=== PATIENT | female | born 1950 | race Caucasian/White ===

== ENCOUNTER 2020-01-09 11:06 | Inpatient (IN) | payer BC, MEDICARE ==
[2020-01-09] MEDS ORDERED: MORPHINE SULFATE 4 MG/ML SYRINGE IVP STA (11:37)
--- NOTE | 2020-01-09 11:40 | ED ---
Fall HPI - General Chief Complaint: Fall Stated Complaint: Fall/Hip Pain Time Seen by Provider: 01/09/20 11:15 Source: patient, EMS, RN notes reviewed Mode of arrival: EMS Limitations: no limitations - History of Present Illness Initial Comments: 69-year-old female presents emergency Department with chief complaint of fall, left hip pain. Patient states she was coming down a step states there is to step states she slipped on her left hip onto a hardwood floor. No vomiting NO blood thinners. Patient states that she was recently diagnosed with oste oporosis. Patient had no prior orthopedic surgeries. Patient denies any complaints. - Related Data Allergies Allergy/AdvReac Type Severity Reaction Status Date / Time No Known Allergies Allergy Verified 01/09/20 11:14 Review of Systems ROS Statement: Those systems with pertinent positive or pertinent negative responses have been documented in the HPI. ROS Other: All systems not noted in ROS Statement are negative. Past Medical History History of Any Multi-Drug Resistant Organisms: None Reported Past Surgical History: Section, Hysterectomy Smoking Status: Never smoker Past Alcohol Use History: Occasional Past Drug Use History: None Reported General Exam Limitations: no limitations General appearance: alert, in no apparent distress Head exam: Present: atraumatic, normocephalic, normal inspection Eye exam: Present: normal appearance, PERRL, EOMI. Absent: scleral icterus, conjunctival injection, periorbital swelling ENT exam: Present: normal exam, normal oropharynx, mucous membranes moist, TM's normal bilaterally Neck exam: Present: normal inspection, full ROM. Absent: tenderness, meningismus, lymphadenopathy Respiratory exam: Present: normal lung sounds bilaterally. Absent: respiratory distress, wheezes, rales, rhonchi, stridor Cardiovascular Exam: Present: regular rate, normal rhythm, normal heart sounds. Absent: systolic murmur, diastolic murmur, rubs, gallop, clicks Extremities exam: Present: other (Pulses of lower cervical bilaterally, there is mild tenderness to left posterior hip region, no obvious deformity no shortening rotation patient leg is in the flexed position) Neurological exam: Present: alert, oriented X3, reflexes normal. Absent: motor sensory deficit Course Vital Signs 01/09/20 11:09 Temperature 98.0 F Pulse Rate 82 Respiratory 18 Rate Blood Pressure 146/69 O2 Sat by Pulse 98 Oximetry Medical Decision Making - Medical Decision Making X-ray shows evidence of left small neck fracture. Case discussed with Dr. Guzman on-call orthopedics who accepts admission with surgical clearance nothing by mouth at midnight. Disposition Clinical Impression: Fall, Fracture of femoral neck, left, closed Disposition: ADMITTED IP TO THIS HOSP Condition: Fair Referrals: Venkatesh Hays MD [Primary Care Provider] - 1-2 days
--- NOTE | 2020-01-09 12:03 | XR ---
EXAMINATION TYPE: XR chest 1V DATE OF EXAM: 01/09/2020 HISTORY: Shortness of breath. COMPARISON: None. TECHNIQUE: Single view of the chest is submitted. FINDINGS: Demonstrated are scattered senescent parenchymal change. There is no evidence for focal infiltrate. The heart is stable. Hilar and mediastinal structures are within normal limits. Degenerative changes are seen of the dorsal spine. IMPRESSION: 1. Chronic changes without evidence for acute pulmonary disease.
--- NOTE | 2020-01-09 12:06 | XR ---
EXAMINATION TYPE: XR Hip LT and AP Pelvis DATE OF EXAM: 01/09/2020 CLINICAL HISTORY: pain TECHNIQUE: AP and frogleg views of the left hip are obtained. Single view of the pelvis is also subm itted. COMPARISON: None. FINDINGS: There Is an impacted left femoral neck fracture. The joint space appears within normal urrutia its. The overlying soft tissue appears unremarkable. IMPRESSION: Patent left femoral neck fracture. No additional fracture seen.
[2020-01-09] MEDS ORDERED: ONDANSETRON 4 MG/2 ML VIAL IVP PRN (12:16)
[2020-01-09] MEDS ORDERED: NALOXONE 0.4 MG/ML 1 ML VIAL IV PRN ×2 (12:16→12:35)
[2020-01-09] MEDS ORDERED: ACETAMINOPHEN TAB 325 MG TAB PO PRN (12:16)
[2020-01-09] MEDS ORDERED: MORPHINE SULFATE 4 MG/ML SYRINGE IV PRN (12:16)
[2020-01-09] MEDS ORDERED: HYDROmorphone 0.5 MG/0.5 ML SYRINGE IVP STA (13:09)
[2020-01-09 13:29] LABS: Basophils # (A) 0.1 k/uL (0-0.2); Basophils % (A) 1 %; Eosinophils # (A) 0.1 k/uL (0-0.7); Eosinophils % (A) 0 %; HCT 41.4 % (34.0-46.0); HGB 14.3 gm/dL (11.4-16.0); Lymphocytes # (A) 0.9 k/uL (1.0-4.8); Lymphocytes % (A) 7 %; MCH 31.3 pg (25.0-35.0); MCHC 34.5 g/dL (31.0-37.0); MCV 90.9 fL (80.0-100.0); Mean Platelet Volume 6.9; Monocytes # (A) 0.4 k/uL (0-1.0); Monocytes % (A) 3 %; Neutrophils # (A) 10.8 k/uL (1.3-7.7); Neutrophils % (A) 88 %; Platelet Count 233 k/uL (150-450); RBC 4.56 m/uL (3.80-5.40); RDW 12.4 % (11.5-15.5); WBC 12.3 k/uL (3.8-10.6)
[2020-01-09] MEDS ORDERED: HYDROmorphone 0.5 MG/0.5 ML SYRINGE IM PRN (15:49)
[2020-01-09] MEDS: HYDROmorphone 1 MG/ML 1 ML SYRINGE IVP PRN ×3 (16:01→23:59)
[2020-01-09 16:48] LABS: Partial Thromboplastin Time 22.6 sec (22.0-30.0)
--- NOTE | 2020-01-09 17:05 | P.CONS ---
History of Present Illness - Reason for Consult Consult date: 01/09/20 Medical management Requesting physician: Rochelle Guzman - Chief Complaint Fall - History of Present Illness This is a very pleasant 69-year-old patient of Dr. hinkle. Patient rather good health. Active. No cardiac history. Patient coming down the stairs when she slipped and hit the left hip on the hardwood floor. Has developed significant pain. X-ray did confirm a left femoral neck fracture. Patient recently was diagnosed with osteoporosis. No chest pain or shortness of breath. Has got a fair exercise tolerance. Review of systems: GEN.: None EYES: None HEENT: None NECK: None RESPIRATORY: None CARDIOVASCULAR: None GASTROINTESTINAL: None GENITOURINARY: None MUSCULOSKELETAL: [Joint pains LYMPHATICS: None HEMATOLOGICAL: None PSYCHIATRY: None NEUROLOGICAL: None Past medical history to include: Patient was a diabetic but controlled with [id number] supplements. Decided not to take her metformin. Discussed the family doctor. Social history: Alcohol socially. No smoking. . Family history: Reviewed, noncontributory to presentation Physical examination: VITAL SIGNS: 98, 82, 18, 146/69, 98% room air GENERAL: BMI 22.8, laying in bed, slightly uncomfortable. EYES: Pupils equal. Conjunctiva normal. HEENT: External appearance of nose and ears normal, oral cavity grossly normal. NECK: JVD not raised; masses not palpable. HEART: First and second heart sounds are normal; no edema. LUNGS: Respiratory rate normal; clear to auscultation. ABDOMEN: Soft, nontender, liver spleen not palpable, no masses palpable. PSYCH: Alert and oriented x3; mood and affect normal MUSCULAR skeletal: Limited range of motion of left hip, some evidence of OA. NEUROLOGICAL: Cranial nerves grossly intact; no facial asymmetry, power and sensation grossly intact. LYMPHATICS: No lymph nodes palpable in the axilla and neck INVESTIGATIONS, reviewed in the clinical context: White count 12.3 hemoglobin 14.3 platelets 233 Chest x-ray film personally reviewed by me-possible chronic changes Left hip x-ray-left femoral neck fracture Assessment: -Left femoral neck fracture secondary to mechanical fall, having patient missed a step. -Leukocytosis likely reactive from injury -Primary osteoporosis Plan: Patient got a good exercise tolerance with no cardiac risk factors except for age. Medically stable to proceed for surgery. Discussed with the patient. Patient get a baseline EKG. Started the patient on subcu Lovenox for DVT prophylaxis. Thank you Dr. Guzman Past Medical History Past Medical History: Diabetes Mellitus Additional Past Medical History / Comment(s): pt takes OTC supplements for diabetes (Cinnamon, Berberine, Turmeric) History of Any Multi-Drug Resistant Organisms: None Reported Past Surgical History: Hysterectomy Smoking Status: Never smoker - Past Family History Mother Family Medical History: No Reported History Medications and Allergies Home Medications Medication Instructions Recorded Confirmed Type Berberine 2 tab PO BID 01/09/20 01/09/20 History Cholecalciferol [Vitamin D3 (25 1,000 unit PO DAILY 01/09/20 01/09/20 History Mcg = 1000 Iu)] Cinnamon Bark [Cinnamon] 500 mg PO BID 01/09/20 01/09/20 History Multivitamins, Thera [Multivitamin 1 tab PO DAILY 01/09/20 01/09/20 History (formulary)] [place]-3 Fatty Acids/Fish Oil [Fish 1 cap PO DAILY 01/09/20 01/09/20 History Oil 1,000 mg Softgel] Turmeric Root Extract [Turmeric] 1,500 mg PO DAILY 01/09/20 01/09/20 History Allergies Allergy/AdvReac Type Severity Reaction Status Date / Time No Known Allergies Allergy Verified 01/09/20 12:40 Physical Exam Vitals: Vital Signs Temp Pulse Resp BP Pulse Ox 01/09/20 14:57 97.3 F L 66 18 127/60 98 01/09/20 13:54 98.3 F 67 16 115/72 98 01/09/20 11:09 98.0 F 82 18 146/69 98 Intake and Output 01/09/20 01/09/20 01/09/20 06:59 14:59 22:59 Other: Voiding Method Bedpan # Voids 1 Weight 62.142 kg 62.142 kg Results CBC & Chem 7: 01/09/20 13:20 Labs: Abnormal Lab Results - Last 24 Hours (Table) 01/09/20 Range/Units 13:20 WBC 12.3 H (3.8-10.6) k/uL Neutrophils # 10.8 H (1.3-7.7) k/uL Lymphocytes # 0.9 L (1.0-4.8) k/uL
[2020-01-09 17:13] LABS: African American GFR (CKD) >90 (>60 ml/min/1.73 sqM); Anion Gap 6 mmol/L; Blood Urea Nitrogen 19 mg/dL (7-17); Calcium 9.3 mg/dL (8.4-10.2); Carbon Dioxide 26 mmol/L (22-30); Chloride 105 mmol/L (98-107); Glucose 135 mg/dL (74-99); Non-African American GFR(CKD) 80 (>60 ml/min/1.73 sqM); Potassium 4.2 mmol/L (3.5-5.1); Sodium 137 mmol/L (137-145)
[2020-01-09 23:05] LABS: Prothrombin Time 10.8 sec (9.9-11.9)
[2020-01-10] MEDS: HYDROmorphone 1 MG/ML 1 ML SYRINGE IVP PRN ×2 (04:22→07:55)
--- NOTE | 2020-01-10 07:21 | P.HPOR ---
History of Present Illness H&P Date: 01/10/20 Chief Complaint: Left hip fracture The patient is a pleasant 69-year-old female with a history of diet-controlled diabetes who presented to the emergency department yesterday after sustaining a fall at her daughter's house. She states that she was turning and fell down 2 stairs and fell onto her left side on hardwood floor. She had immediate left hip pain and was unable to ambulate. Upon examination in the emergency department, she was found to have a left femoral neck fracture on x-ray. The patient was admitted for further evaluation and surgical intervention by o rthopedics. The patient has been seen by internal medicine and has been cleared for surgery. She lives at home with her . This morning, the patient states that she is having left hip pain as expected. She denies any other injuries. Denies head injury. She was recently diagnosed with osteoporosis. Review of Systems Constitutional: Denies chills, Denies fatigue, Denies fever Respiratory: Denies cough Gastrointestinal: Denies diarrhea, Denies nausea, Denies vomiting Musculoskeletal: left: hip pain, hip stiffness, hip swelling Neurological: Denies head injury Past Medical History Past Medical History: Diabetes Mellitus Additional Past Medical History / Comment(s): pt takes OTC supplements for diabetes (Cinnamon, Berberine, Turmeric) History of Any Multi-Drug Resistant Organisms: None Reported Past Surgical History: Hysterectomy Smoking Status: Never smoker - Past Family History Mother Family Medical History: No Reported History Medications and Allergies Home Medications Medication Instructions Recorded Confirmed Type Berberine 2 tab PO BID 01/09/20 01/09/20 History Cholecalciferol [Vitamin D3 (25 1,000 unit PO DAILY 01/09/20 01/09/20 History Mcg = 1000 Iu)] Cinnamon Bark [Cinnamon] 500 mg PO BID 01/09/20 01/09/20 History Multivitamins, Thera [Multivitamin 1 tab PO DAILY 01/09/20 01/09/20 History (formulary)] [place]-3 Fatty Acids/Fish Oil [Fish 1 cap PO DAILY 01/09/20 01/09/20 History Oil 1,000 mg Softgel] Turmeric Root Extract [Turmeric] 1,500 mg PO DAILY 01/09/20 01/09/20 History Allergies Allergy/AdvReac Type Severity Reaction Status Date / Time No Known Allergies Allergy Verified 01/09/20 12:40 Physical Examination The patient is a 69 year old female that is no acute distress. She is alert and oriented x3. The patient's head is normocephalic and atraumatic. Exam of the cervical spine reveals no pain upon palpation or range of motion. Exam of the bilateral upper extremities reveal no obvious deformities or pain upon range of motion. Exam of the right lower extremity reveals no pain upon palpation. Exam of the left lower extremity reveals a mildly externally rotated and shortened leg. There is pain upon palpation to the lateral hip. There is pain upon logrolling and any range of motion of the leg. Bilateral calves are soft and nontender. Patient has good foot and ankle motion bilaterally. Neurological and circulatory status is intact. Results - Labs Labs: Abnormal Lab Results - Last 24 Hours (Table) 01/09/20 01/09/20 Range/Units 13:20 16:09 WBC 12.3 H (3.8-10.6) k/uL Neutrophils # 10.8 H (1.3-7.7) k/uL Lymphocytes # 0.9 L (1.0-4.8) k/uL BUN 19 H (7-17) mg/dL Glucose 135 H (74-99) mg/dL H & H 01/09/20 Range/Units 13:20 Hgb 14.3 (11.4-16.0) gm/dL Hct 41.4 (34.0-46.0) % Coagulation 01/09/20 Range/Units 16:09 INR 1.00 (0.90-1.11) Result Diagrams: 01/09/20 13:20 01/09/20 16:09 - Diagnostic results Hip x-ray: image reviewed (X-rays of the left hip reveal a femoral neck fracture.) Assessment and Plan (1) Diabetes mellitus Current Visit: Yes Status: Acute Code(s): E11.9 - TYPE 2 DIABETES MELLITUS WITHOUT COMPLICATIONS SNOMED Code(s): 24925737 (2) Fall Current Visit: Yes Status: Acute Code(s): W19.XXXA - UNSPECIFIED FALL, INITIAL ENCOUNTER SNOMED Code(s): 2283918 (3) Fracture of femoral neck, left, closed Current Visit: Yes Status: Acute Code(s): S72.002A - FRACTURE OF UNSP PART OF NECK OF LEFT FEMUR, INIT SNOMED Code(s): 027440232 Plan: The clinical and x-ray findings were discussed with the patient. The case was discussed at length with Dr. Hakeem Raya. Treatment options were discussed and surgical intervention is recommended. We discussed the surgical plan as well as the expected postoperative course. Risks and benefits were reviewed including (but not limited to) the risks of infection, bleeding, blood clots, delayed or nonunion, anesthesia-related complications and possible need for additional surgery. Questions were invited and answered. The patient expressed understanding and wishes to proceed with surgery. The patient will be kept on bedrest. Continue PRN pain management. NPO today. She is scheduled for a left hip hemiarthroplasty this morning. The patient will most likely go home with homecare upon discharge.
[2020-01-10] MEDS ORDERED: MIDAZOLAM 2 MG/2 ML VIAL ONE (08:41)
[2020-01-10] MEDS ORDERED: PROPOFOL 10 MG/ML 20 ML VIAL IV ONE (08:41)
[2020-01-10] MEDS ORDERED: PHENYLEPHRINE-0.9% NACL SYG 1 MG/10 ML SYRINGE ONE (08:41)
[2020-01-10] MEDS ORDERED: fentaNYL (PF) 50 MCG/ML 2 ML AMP ONE (08:41)
[2020-01-10] MEDS ORDERED: LACTATED RINGERS 1,000 ML IV ONE ×2 (08:41→10:41)
[2020-01-10] MEDS ORDERED: SODIUM CHLORIDE 0.9% 50 ML with ceFAZolin 2,000 MG IV ONE ×2 (09:00)
[2020-01-10] MEDS ORDERED: ceFAZolin 1,000 MG in SODIUM CHLORIDE 0.9% 1,000 ML IRRIGATION ONE (09:16)
--- NOTE | 2020-01-10 09:48 | P.OP ---
Date of Procedure: 01/10/20 Preoperative Diagnosis: Subcapital fracture left hip Postoperative Diagnosis: Subcapital fracture left hip Procedure(s) Performed: Left hip hemiarthroplasty Implants: Cosby and nephew Polarstem size 3 standard Cosby & Nephew tandem unipolar, 45 mm Cosby [employer] Nephew tandem unipolar 12/14 taper sleeve, +0 mm All components were press-fit. Anesthesia: spinal Surgeon: Hakeem Raya Estimated Blood Loss (ml): 50 Pathology: other (Femoral head) Condition: stable Disposition: PACU Indications for Procedure: This is a 69-year-old female that slipped and fell at home yesterday. She sustained a subcapital fracture of her left hip. She was seen and evaluated and after discussing the surgical nonsurgical treatment options with her at length, I recommended a left hip hemiarthroplasty. She is agreeable to this informed consent was obtained. Operative Findings: The operative findings are consistent with a subcapital fracture left Description of Procedure: Patient was seen and evaluated in the preoperative area, consent was reviewed and the operative site was marked with a skin marker. Patient was then brought to the operating room and given 2 g of Ancef intravenously. A spinal anesthetic was administered by the anesthesia department. Patient was then placed in a lateral decubitus position and held with a [place] hip positioner. The bony prominences were well-padded and an axillary roll was placed. The hip was then prepped and draped in the usual sterile fashion. A universal timeout was then performed which confirmed the patient's name, surgical site, ALLERGIES, and proc edure. A standard anterolateral approach the hip was performed. Skin and subcutaneous tissues were sharply incised with an incision centered over the tip of the greater trochanter. The incision was carefully dissected down to the fascia. The fascia was then split in line with skin incision and a Charnley retractor was gently placed. The abductors were then identified, and the anterior one thi rd of the abductors were released off the trochanter and one large sleeve. The fracture hematoma was evacuated and the proximal femur was exposed by externally rotating the femur. The fracture site was readily visualized. Next, using an osteotomy guide, the proximal femur was osteotomized at the appropriate level of the above the lesser trochanter. This bone was then removed. Attention was th en turned to the femoral head. Using a corkscrew, the femoral head was removed from the acetabulum without incident. The acetabulum was inspected, and found to have no significant arthrosis. Femoral head was then measured. Attention was then redirected to the femur. Proximal femur was re-exposed and a box osteotome was used to lateralize the proximal femur. A tie in hand was then used to locate the femoral canal. Sequential broaching was then performed to the appropriate size. The calcar was then planed and trial head and neck were placed. The hip was then gently reduced. Leg lengths were checked and found to be equal. Hip was then taken through a full range of motion was stable throughout. The hip was then gently dislocated with the aid of a bone hook. The trial head and neck were then removed. The femoral broach was then inspected and found to have a secure fit. The broach was then removed. The hip was then copiously irrigated with antibiotic solution with a pulse lavage. Components were then opened and the femoral stem was then impacted into the proximal femur. The trunnion was cleaned and dried, and the femoral head and neck were then impacted. Hip was again gently reduced. Again leg lengths were checked and found to be equal, and the hip was taken through a full range of motion and found to be stable. The hip was again irrigated with pulsatile lavage, then followed by the Irrrisept solution. The abductors were then repaired through drill holes to the bone to the greater trochanter, utilizing #5 Ethibond suture. Next the fascia was repaired with #2 strata fix suture. The subcutaneous tissue was then repaired with 3-0 Vicryl. The subcuticular tissue was then repaired with 3-0 strata fix suture. Skin was then closed with Exofin skin glue. A sterile dressing was then applied and the patient was transported to the recovery room in stable condition.
[2020-01-10] MEDS ORDERED: TEMAZEPAM 15 MG CAP PO PRN (09:55)
[2020-01-10] MEDS ORDERED: MAGNESIUM HYDROXIDE 2,400 MG/10 ML CUP PO PRN (09:55)
[2020-01-10] MEDS ORDERED: diazePAM 5 MG TAB PO PRN (09:55)
--- NOTE | 2020-01-10 11:01 | XR ---
EXAMINATION TYPE: XR Hip Limited LT DATE OF EXAM: 01/10/2020 COMPARISON: NONE HISTORY: Postop TECHNIQUE: One view submitted. FINDINGS: There is postsurgical change in near anatomic alignment. There is soft tissue edema and emphysema. S urgical clip in the pelvis noted. IMPRESSION: 1. Postoperative change. Appears in near-anatomic alignment.
[2020-01-10] MEDS: LACTATED RINGERS 1,000 ML IV SCH ×2 (12:00→19:38)
[2020-01-10] MEDS: HYDROcodone/APAP 5-325MG 1 EACH TAB PO PRN ×3 (13:15→21:49)
[2020-01-10 13:55] VITALS: RESP 16
[2020-01-10] MEDS ORDERED: HYDROmorphone 0.5 MG/0.5 ML SYRINGE IVP PRN (15:35)
[2020-01-10] MEDS ORDERED: SENNOSIDES-DOCUSATE SODIUM 1 EACH TAB PO SCH (21:00)
--- NOTE | 2020-01-10 21:13 | P.PN ---
Progress Note - Text Progress Note Date: 01/10/20 - Chief Complaint Fall - History of Present Illness This is a very pleasant 69-year-old patient of Dr. hinkle. Patient rather good health. Active. No cardiac history. Patient coming down the stairs when she slipped and hit the left hip on the hardwood floor. Has developed significant pain. X-ray did confirm a left femoral neck fracture. Patient recently was diagnosed with osteoporosis. No chest pain or shortness of breath. Has got a fair exercise tolerance. Today-underwent left hip hemiarthroplasty. Pain control. No nausea vomiting. Laying in bed. Comfortable. Review of systems: Was done for constitutional, cardiovascular, GI, pulmonary. relevant finding as above Active Medications Acetaminophen (Acetaminophen Tab 325 Mg Tab) 650 mg PO Q6HR PRN PRN Reason: Mild Pain or Fever > 100.5 Hydrocodone Bitart/Acetaminophen (Hydrocodone/Apap 5-325mg 1 Each Tab) 1 each PO Q4HR PRN PRN Reason: Moderate Pain Last Admin: 01/10/20 14:09 Dose: 1 each Documented by: Hydrocodone Bitart/Acetaminophen (Hydrocodone/Apap 5-325mg 1 Each Tab) 2 each PO Q6HR PRN PRN Reason: Pain Scale 6 to 10 Diazepam (Diazepam 5 Mg Tab) 5 mg PO Q8HR PRN PRN Reason: Moderate to Severe Spasms Hydromorphone HCl (Hydromorphone 1 Mg/Ml 1 Ml Syringe) 1 mg IVP Q4HR PRN PRN Reason: Pain Last Admin: 01/10/20 07:55 Dose: 1 mg Documented by: Hydromorphone HCl (Hydromorphone 0.5 Mg/0.5 Ml Syringe) 0.5 mg IVP Q4HR PRN PRN Reason: Pain Last Admin: 01/10/20 19:39 Dose: 0.5 mg Documented by: Lactated Ringer's (Lactated Ringers) 1,000 mls @ 100 mls/hr IV .Q10H MEETA Last Admin: 01/10/20 19:38 Dose: 100 mls/hr Documented by: Cefazolin Sodium 2 gm/ Sodium (Chloride) 50 mls @ 100 mls/hr IVPB Q8HR MEETA Stop: 01/11/20 00:29 Last Admin: 01/10/20 17:42 Dose: 100 mls/hr Documented by: Magnesium Hydroxide (Magnesium Hydroxide 2,400 Mg/10 Ml Cup) 2,400 mg PO DAILY PRN PRN Reason: Constipation Morphine Sulfate (Morphine Sulfate 4 Mg/Ml Syringe) 4 mg IV Q4HR PRN PRN Reason: Severe Pain Naloxone HCl (Naloxone 0.4 Mg/Ml 1 Ml Vial) 0.2 mg IV Q2M PRN PRN Reason: Opioid Reversal Naloxone HCl (Naloxone 0.4 Mg/Ml 1 Ml Vial) 0.2 mg IV Q2M PRN PRN Reason: Opioid Reversal Ondansetron HCl (Ondansetron 4 Mg/2 Ml Vial) 4 mg IVP Q8HR PRN PRN Reason: Nausea And Vomiting Rivaroxaban (Rivaroxaban 10 Mg Tab) 10 mg PO DAILY [facility] Stop: 02/15/20 09:01 Senna/Docusate Sodium (Sennosides-Docusate Sodium 1 Each Tab) 2 each PO HS MEETA Last Admin: 01/10/20 19:38 Dose: 2 each Documented by: Temazepam (Temazepam 15 Mg Cap) 15 mg PO HS PRN PRN Reason: Insomnia Physical examination: VITAL SIGNS: 98.2,, 83, 16, 1 28 x 68, 93% room air GENERAL: Laying in bed, comfortable EYES: Pupils equal. Conjunctiva normal. NECK: JVD not raised; masses not palpable. HEART: First and second heart sounds are normal; no edema. LUNGS: Respiratory rate normal; clear to auscultation. ABDOMEN: Soft, nontender, liver spleen not palpable, no masses palpable. PSYCH: Alert and oriented x3; mood and affect normal MUSCULAR skeletal: Limited range of motion of left hip, some evidence of OA. INVESTIGATIONS, reviewed in the clinical context: White count 12.3 hemoglobin 14.3 platelets 233 Chest x-ray film personally reviewed by me-possible chronic changes Left hip x-ray-left femoral neck fracture Assessment: -Left femoral neck fracture secondary to mechanical fall, having patient missed a step.-Status post left hip hemiarthroplasty -Leukocytosis likely reactive from injury -Primary osteoporosis Plan: Getting Ancef for perioperative prophylaxis. IV fluids. Pain control. Xarelto for DVT prophylaxis. Discussed with patient. Thank you Dr. Guzman
[2020-01-10 23:36] VITALS: PULSE 99
[2020-01-11] MEDS: HYDROmorphone 1 MG/ML 1 ML SYRINGE IVP PRN ×2 (00:20→04:44)
[2020-01-11] MEDS: HYDROcodone/APAP 5-325MG 1 EACH TAB PO PRN ×2 (03:39→07:10)
[2020-01-11 03:41] VITALS: BP 138/70; TEMP 98.8
[2020-01-11] MEDS: LACTATED RINGERS 1,000 ML IV SCH (04:43)
[2020-01-11 06:43] LABS: Basophils % (A) 0 %; Eosinophils % (A) 0 %; HCT 36.4 % (34.0-46.0); HGB 12.4 gm/dL (11.4-16.0); Lymphocytes # (A) 0.6 k/uL (1.0-4.8); Lymphocytes % (A) 5 %; MCH 30.9 pg (25.0-35.0); MCHC 34.1 g/dL (31.0-37.0); MCV 90.7 fL (80.0-100.0); Mean Platelet Volume 6.9; Monocytes # (A) 0.6 k/uL (0-1.0); Monocytes % (A) 5 %; Neutrophils # (A) 10.2 k/uL (1.3-7.7); Neutrophils % (A) 89 %; Platelet Count 180 k/uL (150-450); RBC 4.02 m/uL (3.80-5.40); RDW 12.3 % (11.5-15.5); WBC 11.4 k/uL (3.8-10.6)
[2020-01-11] MEDS ORDERED: RIVAROXABAN 10 MG TAB PO SCH (09:00)
[2020-01-11] MEDS ORDERED: HYDROcodone/APAP 7.5-325MG 1 EACH TAB PO PRN ×2 (10:56)
--- NOTE | 2020-01-11 11:03 | P.DS ---
Providers Date of admission: 01/09/20 12:09 Expected date of discharge: 01/11/20 Attending physician: Rochelle Guzman Consults: 01/09/20 12:16 Consult Physician Urgent Consulting Provider: Ramu Uriostegui Consult Reason/Comments: Surgical clearance Do you want consulting provider notified?: Yes Primary care physician: Venkatesh Hays - Discharge Diagnosis(es) (1) Fall Current Visit: Yes Status: Acute (2) Fracture of femoral neck, left, closed Current Visit: Yes Status: Acute Hospital Course: This is a 69-year-old female who sustained a fracture of her left hip after a fall on 01/09/2020. The patient presented for evaluation in the emergency room and was admitted for further management. After discussion and consideration patient elects to proceed with left hip hemiarthroplasty. The patient is seen preoperatively by Dr. Raya and medically cleared for surgery by internal medicine. Patient is admitted to [facility] on 01/09/2020 and left hip hemiarthroplasty is performed on 01/10/2020. The procedure is performed without complication or sequelae. The patient is doing well postoperatively. Labs and vital signs are stable on day of discharge. On day of discharge patient's hip incision is healing well. There is minimal erythema. There is no drainage noted at this time. There is minimal soft tissue swelling to the hip and thigh. Patient has full foot and ankle motion w ithout difficulty or pain. Calf is soft and nontender to palpation. Neurovascular status to the left lower extremity is intact. Patient is discharged home in good condition. Please see med rec for accurate list of home medications. Patient Condition at Discharge: Fair Plan - Discharge Summary New Discharge Prescriptions: New HYDROcodone/APAP 7.5-325MG [[place] 7.5-325] 1 - 2 tab PO Q6H PRN #32 tab PRN Reason: Pain Sennosides [Senokot] 2 tab PO DAILY PRN #60 tablet PRN Reason: Constipation Rivaroxaban [Xarelto] 10 mg PO DAILY #35 tab No Action Turmeric Root Extract [Turmeric] 1,500 mg PO DAILY [place]-3 Fatty Acids/Fish Oil [Fish Oil 1,000 mg Softgel] 1 cap PO DAILY Multivitamins, Thera [Multivitamin (formulary)] 1 tab PO DAILY Cholecalciferol [Vitamin D3 (25 Mcg = 1000 Iu)] 1,000 unit PO DAILY Berberine 2 tab PO BID Cinnamon Bark [Cinnamon] 500 mg PO BID Discharge Medication List Berberine 2 tab PO BID 01/09/20 [History] Cholecalciferol [Vitamin D3 (25 Mcg = 1000 Iu)] 1,000 unit PO DAILY 01/09/20 [History] Cinnamon Bark [Cinnamon] 500 mg PO BID 01/09/20 [History] Multivitamins, Thera [Multivitamin (formulary)] 1 tab PO DAILY 01/09/20 [History] [place]-3 Fatty Acids/Fish Oil [Fish Oil 1,000 mg Softgel] 1 cap PO DAILY 01/09/20 [History] Turmeric Root Extract [Turmeric] 1,500 mg PO DAILY 01/09/20 [History] HYDROcodone/APAP 7.5-325MG [[place] 7.5-325] 1 - 2 tab PO Q6H PRN #32 tab 01/11/20 [Rx] Rivaroxaban [Xarelto] 10 mg PO DAILY #35 tab 01/11/20 [Rx] Sennosides [Senokot] 2 tab PO DAILY PRN #60 tablet 01/11/20 [Rx] Follow up Appointment(s)/Referral(s): [facility] [NON-STAFF] - As Needed (Supplier of Walker) Venkatesh Hays MD [Primary Care Provider] - 1-2 days Hakeem Raya DO [Doctor of Osteopathic Medicine] - 1 Week Activity/Diet/Wound Care/Special Instructions: Pt picking [facility] agency and will contact , do not dc yet Weightbearing as tolerated with walker. Leave dressing intact. Dressing may be removed by home care nurse or by patient in 10 days. May shower with dressing on. Continue hip dislocation precautions. Continue use of abductor pillow for 6 weeks while sleeping. Please take Xarelto as prescribed for 35 days to prevent blood clots. Recommend use of compression stockings daily until follow up to help prevent swelling and blood clots. May remove at night before sleeping. Please follow-up with [facility] in 2 weeks and call with any questions or concerns, . Discharge Disposition: HOME WITH HOME HEALTH SERVICES
--- NOTE | 2020-01-12 23:22 | P.PN ---
Progress Note - Text Progress Note Date: 01/11/20 - Chief Complaint Fall - History of Present Illness This is a very pleasant 69-year-old patient of Dr. hinkle. Patient rather good health. Active. No cardiac history. Patient coming down the stairs when she slipped and hit the left hip on the hardwood floor. Has developed significant pain. X-ray did confirm a left femoral neck fracture. Patient recently was diagnosed with osteoporosis. No chest pain or shortness of breath. Has got a fair exercise tolerance. underwent left hip hemiarthroplasty. Today-stable. Pain control. Did tolerate a diet. No nausea vomiting. Review of systems: Was done for constitutional, cardiovascular, GI, pulmonary. relevant finding as above current medications reviewed in today's electronic records Physical examination: VITAL SIGNS: 98.8, 99, 16, 138.70, 94% room air GENERAL: Laying in bed, comfortable EYES: Pupils equal. Conjunctiva normal. NECK: JVD not raised; masses not palpable. HEART: First and second heart sounds are normal; no edema. LUNGS: Respiratory rate normal; clear to auscultation. ABDOMEN: Soft, nontender, liver spleen not palpable, no masses palpable. PSYCH: Alert and oriented x3; mood and affect normal MUSCULAR skeletal: Limited range of motion of left hip, some evidence of OA. INVESTIGATIONS, reviewed in the clinical context: White count 11.4 hemoglobin 12.4 White count 12.3 hemoglobin 14.3 platelets 233 Chest x-ray film personally reviewed by me-possible chronic changes Left hip x-ray-left femoral neck fracture Assessment: -Left femoral neck fracture secondary to mechanical fall, having patient missed a step.-Status post left hip hemiarthroplasty -Leukocytosis likely reactive from injury -Primary osteoporosis Plan: continue current medications. Follow-up with PCP. Thank you Dr. Guzman
== END 2020-01-11 13:22 | disposition home health service (06) | DRG 522 ==
LOC: EC 11:06 → 5NMEDONC 12:09
PROVIDERS: ADMIT Orthopaedic Surgery; ATTEND Orthopaedic Surgery
PROC: 0SRS01A Replacement of Left Hip Joint, Femoral Surface with Metal Synthetic Substitute, Uncemented, Open Approach (ICD-10-PCS; principal; 2020-01-09)
DX: S72.012A Unspecified intracapsular fracture of left femur, initial encounter for closed fracture (principal); E11.9 Type 2 diabetes mellitus without complications; M81.0 Age-related osteoporosis without current pathological fracture; D72.829 Elevated white blood cell count, unspecified; Z79.899 Other long term (current) drug therapy; Z90.710 Acquired absence of both cervix and uterus; Z87.42 Personal history of other diseases of the female genital tract; Z98.890 Other specified postprocedural states; Z98.891 History of uterine scar from previous surgery; W10.9XXA Fall (on) (from) unspecified stairs and steps, initial encounter; Y92.009 Unspecified place in unspecified non-institutional (private) residence as the place of occurrence of the external cause
CPT/HCPCS: 71045; 73501; 73502; 80048; 85025; 85610; 85730; 88305; 88311; 93005; 96374; 96375; 99284